=== PATIENT | female | born 2005 | race Caucasian/White ===

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

== ENCOUNTER 2024-12-17 21:44 | Emergency (ER) | payer BC, SELFPAY ==
--- OUTSIDE RECORDS SUMMARY | 2009-08-15 09:45 | XMS_ITS | Continuity of Care Document ---
Author Organization [facility] Address [address] [place] [address] [address] [place] [address] Phone Care Team Providers Care Traffic Ii Manager Name Role Phone Hemphill OD, Gelacio Unavailable Unavailable Procedures Procedure Date Eye Exam & Treatment Refraction Eye Exam Established Pt Advance Directives Directive Yes / No Effective Date File Name No Information Encounters Encounter Description Practice Location Reason(s) For Visit Diagnoses Date Provider Providers Copied on Encounter [facility], [address] [place] [address] [address], [place], [place], [id number], [place] tel:[phone] [facility] No Information [phone] 0 Hemphill OD Gelacio. [address] [facility] , [address], [place], [address], [place]. tel:[phone] [facility], [address] [place] [address] [address], [place], [place], [id number], tel:[phone] [facility] No Information [address] Saundra. [address] [facility] , [address], [place], [address], [place]. tel:[phone] Family History Family Member Type Diagnosis Age At Onset No Information Payers Payer name Insurance type Covered constitution party ID Authoriza tion(s) No Information Social History Type Description Quantity Date Captured Comments Sex Female Smoking Status No Information Chief Complaint And Reason For Visit No Information Reason For Referral Reason For Referral No Information History Of Present Illness Encounter Date Complaint History Of Prese nt Illness No Information Functional Status Date Functional Assessmen t No Information Instructions Date Instruction Additional Infor mation No Information Assessments Type Assessment Date No Information Patient Care Teams Name Effective Dates (start - stop) Status Members No Information
[2024-12-17 21:46] VITALS: BP 136/84; PULSE 80; RESP 16; TEMP 36.5; O2SAT 100
--- OUTSIDE RECORDS SUMMARY | 2024-12-17 21:47 | XMS_ITS | Clinical Summary ---
Author Organization [facility] Address [address] [place] [address] Care Team Providers Care Cooling Room Attendant Name Role Phone Hayden Arauz MD Primary Care Provider Allergies No known active allergies Medications cyclobenzaprine 5 MG tablet Take 1 tablet (5 mg total) by mouth 3 (three) times daily as needed for Muscle Spasms. 10 tablet 08/15/2018 Active Social History Tobacco Use Types Packs/Day Years Used Date Smoking Tobacco: Every Day Cigarettes Smokeless Tobacco: Never Tobacco Cessation:Ready to Q uit: Not Asked; Counseling Given: Not Answered Alcohol Use Standard Drinks/Week Comments Not Currently 0 (1 standard drink = 0.6 oz pur e alcohol) Comments No Sex and Gender Information Value Date Recorded Sex Assigned at Not on file Legal Sex Female 5:05 PM CDT Gender Identity Not on file Sexual Orientation Not on file Last Filed Vital Signs Vital Sign Reading Time Taken Comments Blood Pressure 113/71 07/27/2023 7:33 PM CDT Pulse 101 07/27/2023 7:33 PM CDT Temperature 36.6 C (97.8 F) 07/27/2023 7:33 PM CDT Respiratory Rate 18 07/27/2023 7:33 PM CDT Oxygen Saturation 100% 07/27/2023 7:33 PM CDT Inhaled Oxygen Concentration - - Weight 70.3 kg (155 lb) 07/27/2023 7:33 PM CDT Height 160 cm (5' 3) 07/27/2023 7:33 PM CDT Body Mass Index 27.46 07/27/2023 7:33 PM CDT Plan of Treatment Health Maintenance Due Date Last Done Comments Annual Physical 2007 Meningococcal B Vaccine (1 o f 2 - Standard) 2020 Hepatitis C 2022 DTaP, Tdap and Td Vaccines ( 2 - Tdap) 2023 11/24/2005 Hepatitis B Vaccines (1 of 3 - 19+ 3-dose series) 2023 Pneumococcal Vaccine: Pediatrics (0 to 5 Years) and At-Risk Patients (6 to 49 Years) (1 of 2 - PCV) 2023 COVID-19 Vaccine (1 - 2023-2 5 season) 2023 Meningococcal Vaccine Aged Out 10/10/2015 No rosalee ruth eligible based on patient's age to complete this topic HPV Vaccines Completed 10/12/2017, 12/12/2015, 10/10/2015 RSV Immunizations Under 20 Months Aged Out No longer eligible b ased on patient's age to complete this topic Insurance Care Teams Cooling Room Attendant Relationship Specialty Start Date End Date Hayden Arauz MD [address] [facility] [address] [place] [address] PCP - General PEDIATRICS 08/15/18
[2024-12-17 22:10] VITALS: BP 121/78; PULSE 75; RESP 14; TEMP 36.9; O2SAT 99
--- NOTE | 2024-12-17 22:16 | WC.ED.TRAUMA ---
HPI - Trauma General Chief Complaint: Extremity Injury, Upper Stated Complaint: cut left wrist with knife, no SI Time Seen by Provider: 12/17/24 22:16 Source: patient Related Data Allergies Allergy/AdvReac Type Severity Reaction Status Date / Time No Known Allergies Allergy Verified 08/31/24 10:42 [facility] Past Medical History Medical History Encounter for screening examination for sexually transmitted disease Family History Family History (Updated 08/31/24 @ 10:44 by CARLO Clements) Grandparent Breast cancer maternal and paternal grandmothers Social History Social History (Updated 08/31/24 @ 10:45 by CARLO Clements) Smoking status: Never smoker Second hand tobacco smoke exposure: No Alcohol intake: never Substance use: never Substance use type: does not use Do You Feel Safe in your Home?: Yes Lack of Transportation: No Lack of Food: Never True Current Housing: I Have Housing Concerned About Future Housing: No Difficulty Paying Gas/Electric Bills: No Difficulty Paying for Meds: No Currently Unemployed: No Education: Associate Degree Difficulty w/ Childcare or Family Care: No Living arrangements: with family Additional living arrangements comments: with father Occupation/Education: occupation 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 Gender identity (if verbalized by the patient): Female Sexual Orientation (if Verbalized by the Patient): Straight or Heterosexual Course Vital Signs Vital signs: Vital Signs Temperature 36.5 C 12/17/24 21:46 Pulse Rate 80 12/17/24 21:46 Respiratory Rate 16 12/17/24 21:46 Blood Pressure 136/84 12/17/24 21:46 Pulse Oximetry 100 12/17/24 21:46 Oxygen Delivery Room Air 12/17/24 21:46 Temperature 36.5 C 12/17/24 21:46 Pulse Rate 80 12/17/24 21:46 Respiratory Rate 16 12/17/24 21:46 Blood Pressure 136/84 12/17/24 21:46 Pulse Oximetry 100 12/17/24 21:46 Oxygen Delivery Room Air 12/17/24 21:46 Discharge Plan Discharge Patient Language: Tunisian Prescriptions: No Action drospirenone-ethinyl estradiol [FER (28)] 3-0.02 mg tablet 1 tablet PO DAILY Qty: 84 3RF Follow-up/Referrals: Hayden Arauz MD [Primary Care Provider, Pediatrics]
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
--- OUTSIDE RECORDS SUMMARY | 2024-12-17 22:42 | XMS_ITS | Clinical Summary ---
Author Organization [facility] Address [address] [place] [address] Care Team Providers Care Laundry Clerk Name Role Phone Hayden Arauz MD Primary Care Provider [phone] Allergies No known active allergies Medications cyclobenzaprine [...] to complete this topic Insurance Care Teams Laundry Clerk Relationship Specialty Start Date End Date Hayden Arauz MD [address] [facility] [address] [place] [address] PCP - General PEDIATRICS 08/15/18
[2024-12-17] MEDS: TETANUS,DIPHTHERIA,AC PERTUSSIS ADULT (0.5 ML) BOOSTRIX IM (22:46)
== END 2024-12-17 23:44 | disposition home or self-care (01) ==
PROVIDERS: Emergency Provider Emergency Medicine
DX: S61.512A Laceration without foreign body of left wrist, initial encounter (principal); Z23 Encounter for immunization; W26.0XXA Contact with knife, initial encounter
CPT/HCPCS: 12001; 90471; 90715; 99282